=== PATIENT | male | born 1975 | race Caucasian/White ===

== ENCOUNTER 2020-08-16 18:23 | Emergency (ER) | payer BC, SELFPAY ==
[2020-08-16 18:45] VITALS: BP 153/88; PULSE 72; RESP 18; TEMP 36.7; O2SAT 99; BMI 28.2
--- NOTE | 2020-08-16 18:57 | HMH.EDUTC ---
[facility] [place] Impression: P[place] Disposition: Home, Self-Care Condition on Discharge: Good Instructions: DI for Puncture Wound Additional Instructions: Keep the wound clean and dry. Watch the for signs of infection, such as redness, swelling, drainage, fever. etc. Take tylenol or ibuprofen for pain. Follow up with your regular doctor. GO TO THE ER FOR ANY WORSENING SYMPTOMS OR CONCERNS. Prescriptions: Amoxicillin/Potassium Clav [Augmentin 875-125 Tablet] 1 tab PO Q12H 10 Days #20 tab Transmission Status: Received by [id number] Mupirocin [Bactroban 2% Ointment 22gm tube] 1 applicatio TP TID 7 Days #1 tube Transmission Status: Received by [id number] Referrals: Shanika Taylor MD [Primary Care Provider] - Time of Disposition: 19:19 Medical Decision Making - Medical Records Medical records reviewed: No: I reviewed the patient's medical records. - Curt Inquiry Pt receiving controlled substance: No Vital Signs: 08/16/20 18:45 08/16/20 19:27 Temperature 98.1 F 98.1 F Temperature Source Oral Oral Pulse Rate 72 Pulse Rate [Radial] 72 Respiratory Rate 18 18 Blood Pressure 153/88 H Blood Pressure [Right Arm] 153/88 H Blood Pressure Mean [Right Arm] 109 Blood Pressure Source Automatic Cuff Blood Pressure Source [Right Arm] Automatic Cuff Blood Pressure Position Sitting Blood Pressure Position [Right Arm] Sitting 02 Sat by Pulse Oximetry 99 Oxygen Delivery Method Room Air Room Air Orders (Tests/Meds): ED MEDICATIONS Discontinued Medications Generic Name Dose Route Start Last Admin Trade Name Freq PRN Reason Stop Dose Admin Tetanus/Reduced Diphtheria/Acell Pertussis 0.5 ml 08/16/20 19:07 08/16/20 19:20 Tet/Diphth/Pert-Adult 0.5ml Syringe IM 08/16/20 19:08 0.5 ml .ONCE ONE Administration Medical Decision Narrative: He refused an x-ray of his foot to comletely evaluate for foreign body. He states that he knows the nail was intact when he pulled it out of his foot. [facility] [place] General Stated complaint: [id number] Stepped on Nail R Foot Time Seen by Provider: 08/16/20 18:58 Mode of Arrival: Ambulatory Source of Information: Patient Limitations: No Limitations Description of Symptoms (Recalled from Triage Doc. by RN): stepped on nail HEENT Symptoms (Recalled from RN notes): No Resp Symptoms (Recalled from RN notes): No Skin Symptoms (Recalled from RN notes): Yes MS Symptoms (Recalled from RN notes): No Functional Status (Recalled from RN notes): wnl - History of Present Illness Provider Complaint: He states that earlier this evening he stepped on a meera nail with is right foot. He received a puncture wound to his right foot. He denies a history of diabetes. His tetanus immunization is not up to date. He states that he is certain that the nail did not break off in his foot. - Related Data Previous Rx's Medication Instructions Recorded Amoxicillin/Potassium Clav 1 tab PO Q12H 10 Days #20 tab 08/16/20 [Augmentin 875-125 Tablet] Mupirocin [Bactroban 2% Ointment 1 applicatio TP TID 7 Days #1 tube 08/16/20 22gm tube] Allergies Allergy/AdvReac Type Severity Reaction Status Date / Time No Known Allergies Allergy Verified 08/16/20 18:51 - Worker's Comp Is this a Worker's Comp case?: No [facility] History - Hepatitis A Screen Drug use history?: No High risk sexual behaviors?: No History of sexually transmitted infection?: No Currently employed?: No Childcare worker?: No Do you have indoor plumbing?: Yes Do you have electricity?: Yes Attestation statement:: This patient has been screened for Hepatitis A risk factors. I have reviewed the patient's past medical history: Yes - Social History Alcohol Intake: never Occupational Status: other ROS Obtained: Yes All systems reviewed & no additional complaints - Constitutional Constitutional: Denies chills, Denies fever(s) -
[2020-08-16 19:27] VITALS: BP 153/88; PULSE 72; RESP 18; TEMP 36.7; O2SAT 99
== END 2020-08-16 19:28 | disposition home or self-care (01) ==
PROVIDERS: Emergency Provider Nurse Practitioner Family; PCP Family Medicine
DX: S91.331A Puncture wound without foreign body, right foot, initial encounter (principal); W22.8XXA Striking against or struck by other objects, initial encounter; Y92.019 Unspecified place in single-family (private) house as the place of occurrence of the external cause; Z23 Encounter for immunization
CPT/HCPCS: 90471; 90715; 99201

== ENCOUNTER 2021-09-20 09:59 | Outpatient (CLI) | payer BC, SELFPAY ==
[2021-09-20] VITALS (7 sets, daily range): BP systolic 115–137; BP diastolic 72–89; PULSE 20–88; RESP 16–20; TEMP 37; O2SAT 96–100
== END 2021-09-20 12:16 | disposition home or self-care (01) ==
PROVIDERS: PCP Family Medicine; Visit Provider Family Medicine
DX: U07.1 COVID-19 (principal); Z23 Encounter for immunization
CPT/HCPCS: 96365